=== PATIENT | female | born 1955 | race Caucasian/White ===

== ENCOUNTER 2021-10-03 16:28 | Outpatient (CLI) | payer MEDICARE, SELFPAY ==
--- NOTE | ~2021-10-03 | MM_ITS ---
EXAMINATION: MM screening [facility] BI w ho HISTORY: Screening mammogram TECHNIQUE: Craniocaudal and mediolateral oblique 3-D tomosynthesis images were obtained and synthetic 2-D images were generated. CAD analysis was submitted and interpreted. COMPARISON: 02/21/2019, 03/06/2016 BREAST PARENCHYMAL COMPOSITION: There are scattered areas of fibroglandular density. FINDINGS: There is no suspicious mass, calcification, or architectural distortion to suggest malignan cy in either breast. There has been no suspicious interval change. IMPRESSION: 1. No mammographic evidence of malignancy. 2. Recommend routine screening mammography in one year. BI-RADS Category 1: Negative Reviewed, dictated and finalized at location A.
--- NOTE | ~2021-10-03 | DEXA_ITS ---
Bone Density Report Name: CHAU TELLO Age: 66 Sex: Female Ethnicity: White Date of : 1955 Indication: postmenopausal; screening for osteoporosis; height loss; Referring Provider: MICHELLE, ABRAHAM Vergara Study: Bone densitometry was performed. Exam Date: October 03, 2021 Accession number: [id number] Bone Density: Region BMD T-score Z-score Classification AP Spine(L1-L4) 1.181 1.2 3.0 Normal Femoral Neck (Left) 0.655 -1.7 -0.2 Osteopenia Total Hip (Left) 0.806 -1.1 0.2 Osteopenia Femoral Neck (Right) 0.705 -1.3 0.3 Osteopenia Total Hip (Right) 0.821 -1.0 0.3 Normal Total Hip Mean 0.814 -1.1 0.3 Osteopenia World Health Organization criteria for BMD impression classify patients as: Normal (T-score at or above -1.0), Osteopenia (T-score between -1.0 and -2.5), or Osteoporosis (T-score at or below -2.5). 10-year Fracture Risk(1): Major Osteoporotic Fracture 9.3% Hip Fracture 1.2% Reported Risk Factors: [place] (), Neck BMD=0.655, BMI=32.7 (1) FRAX(R) Version 3.08. Fracture probability calculated for an untreated patient. Fracture probability may be lower if the patient has received treatment. Clinical Information Provided by Patient: Has used the following medications: Vitamin D Patient maximum height was 65 Menopause Age: 38 Drinks caffeinated beverages Onset of menses at age 13 Number of children 2 Impression: The patient has low bone mass, based on the Left Femoral Neck T-score. The patient has an estimated ten-year risk of hip fracture of 1.2% and an estimated ten-year risk of major fracture of 9.3%, based on the WHO FRAX algorithm. Discussion: BONE DENSITY IS LOW AT ONE OR MORE SKELETAL SITES. This patient's lowest T-score is low at one or more skeletal sites. It meets the World Health Organization's (WHO) criteria for ?low bone mass? (T-score between -1.0 and -2.5). The patient's 10-year risk of fracture as calculated by FRAX is less than the threshold where pharmacological therapy is recommended by the National Osteoporosis Foundation (NOF). However, all treatment decisions require clinical judgment and consideration of individual patient factors, including patient preferences, comorbidities, previous drug use, risk factors not captured in the FRAX model (e.g., frailty, falls, vitamin D deficiency, increased bone turnover, interval significant decline in bone density) and possible under or overestimation of fracture risk by FRAX. The patient should follow a healthful lifestyle (good nutrition with adequate calcium and vitamin D, and appropriate weight-bearing exercise). Follow-Up: Consider repeating this study in 2 to 3 years to reassess this patient's status, or sooner if there is some new clinical indication. Reported by: [facility] on 10/03/2021 5:03:00 PM.
== END 2021-10-03 16:29 | disposition home or self-care (01) ==
PROVIDERS: PCP Internal Medicine; Visit Provider Internal Medicine
DX: Z12.31 Encounter for screening mammogram for malignant neoplasm of breast (principal); Z78.0 Asymptomatic menopausal state; M85.851 Other specified disorders of bone density and structure, right thigh; M85.852 Other specified disorders of bone density and structure, left thigh
CPT/HCPCS: 77063; 77067; 77080

== ENCOUNTER → 2023-05-18 07:02 | Outpatient (CLI) | payer MEDICARE, SELFPAY ==
--- NOTE | ~2023-05-18 | MM_ITS ---
EXAMINATION: MM screening [facility] BI w ho HISTORY: Screening TECHNIQUE: Craniocaudal and mediolateral oblique 3-D tomosynthesis images were obtained and synthetic 2-D images were generated. CAD analysis was submitted and interpreted. COMPARISON: Comparison to multiple prior studies sequentially, with oldest reviewed study dated 02/20. BREAST PARENCHYMAL COMPOSITION: There are scattered areas of fibroglandular density. FINDINGS: There is no evidence of suspicious mass, calcification, or architectural distortion to sugg est malignancy in either breast. There has been no suspicious interval change. IMPRESSION: 1. No mammographic evidence of malignancy. 2. Recommend routine screening mammography in one year. BI-RADS Category 1: Negative Reviewed, dictated and finalized at location A. EAR PHARMACIST
== END ==
PROVIDERS: Visit Provider Internal Medicine
DX: Z12.31 Encounter for screening mammogram for malignant neoplasm of breast (principal)
CPT/HCPCS: 77063; 77067

== ENCOUNTER 2024-02-04 13:39 | Outpatient (CLI) | payer MEDICARE, SELFPAY ==
--- NOTE | ~2024-02-04 | XR_ITS ---
EXAMINATION: XR lg joint inject/asp w image DATE: 02/04/2024 14:52 INDICATION: Right knee pain. TECHNIQUE: A time-out was performed to verify the patient's name, date of , and procedure to b e performed. The procedure including the risks, benefits, and alternatives was discussed with the pat ient. Risks discussed included bleeding and infection. The patient understood the risks and agreed to proceed. The skin overlying the right knee joint was prepped and draped in usual sterile fashion. Anesthetic was administered with 1% lidocaine subcutaneously. An 18 G needle was advanced under fluo roscopic guidance into the joint. Fluid was aspirated. The needle was removed and the entry site was cleaned and dressed. There were no immediate complications. Fluoroscopy exposure time was 0.0 minute s. The total number of images was 1. FINDINGS: Real-time fluoroscopy demonstrates a total right knee arthroplasty with pointer overlying t he knee joint. IMPRESSION: 1. Fluoroscopy guided right knee joint aspiration yielding 9 mL yellow fluid. Reviewed, dictated and finalized at location A. GE MANAGER
== END 2024-02-04 13:40 | disposition home or self-care (01) ==
PROVIDERS: PCP Internal Medicine; Visit Provider Orthopaedic Surgery
DX: M25.561 Pain in right knee (principal); Z96.651 Presence of right artificial knee joint
CPT/HCPCS: 20610; 77002; 87070; 87075; 87205

== ENCOUNTER 2024-05-30 08:19 | Outpatient (CLI) | payer MEDICARE, SELFPAY ==
--- NOTE | ~2024-05-30 | MM_ITS ---
EXAMINATION: MM screening [facility] BI w ho HISTORY: Screening mammogram TECHNIQUE: Craniocaudal and mediolateral oblique 3-D tomosynthesis images were obtained and synthetic 2-D images were generated. CAD analysis was submitted and interpreted. COMPARISON: 05/18/2023, 10/03/2021, 02/21/2019 BREAST PARENCHYMAL COMPOSITION:Not Dense. The breasts are almost entirely fatty FINDINGS: Stable small circumscribed bilateral low-density masses. No suspicious mass, calcification, or architectural distortion are identified in either breast to suggest malignancy. There has been no suspicious interval change. IMPRESSION: No mammographic evidence of malignancy. Recommend routine screening mammography in one year. BI-RADS Category 2: Benign finding(s). Reviewed, dictated and finalized at location .
--- NOTE | ~2024-05-30 | DEXA_ITS ---
Bone Density Report Name: CHAU TELLO Age: 68 Sex: Female Ethnicity: White Date of : 1955 Indication: osteopenia; hyperparathyroidism; parental hip fracture; height loss; Referring Provider: MICHELLE, ABRAHAM Vergara Study: Bone densitometry was performed. Exam Date: May 30, 2024 Accession number: [id number] Bone Density: Region BMD T-score Z-score Classification AP Spine(L1-L4) 1.159 1.0 3.0 Normal Femoral Neck (Left) 0.643 -1.9 -0.1 Osteopenia Total Hip (Left) 0.800 -1.2 0.3 Osteopenia Femoral Neck (Right) 0.647 -1.8 -0.1 Osteopenia Total Hip (Right) 0.774 -1.4 0.1 Osteopenia Total Hip Mean 0.787 -1.3 0.2 Osteopenia World Health Organization criteria for BMD impression classify patients as: Normal (T-score at or above -1.0), Osteopenia (T-score between -1.0 and -2.5), or Osteoporosis (T-score at or below -2.5). 10-year Fracture Risk(1): Major Osteoporotic Fracture 17% Hip Fracture 2.8% Reported Risk Factors: [place] (), Neck BMD=0.643, BMI=33.3, parental fracture (1) FRAX(R) Version 3.08. Fracture probability calculated for an untreated patient. Fracture probability may be lower if the patient has received treatment. Previous Exams: Region Exam Age BMD T-score BMD Change BMD Change Date g/cm2 vs Baseline vs Previous AP Spine (L1-L4) 05/30/2024 68 1.159 1.0 -0.022 (-1.9%) -0.022 (-1.9%) 10/03/2021 66 1.181 1.2 Total Hip(Left) 05/30/2024 68 0.800 -1.2 -0.005 (-0.7%) -0.005 (-0.7%) 10/03/2021 66 0.806 -1.1 Total Hip(Right) 05/30/2024 68 0.774 -1.4 -0.047 (-5.7%) -0.047 (-5.7%) 10/03/2021 66 0.821 -1.0 *Denotes significance at 95% confidence level, LSC for AP Spine = 0.022 g/cm2, LSC for Total Hip = 0.027 g/cm2 Clinical Information Provided by Patient: Parent has had a hip fracture Has used the following medications: Vitamin D Has the following medical conditions: Hyperparathyroidism Patient maximum height was 63.0 Menopause Age: 38 No regular weight bearing exercise Drinks caffeinated beverages Onset of menses at age 13 Number of children 2 Impression: The patient has low bone mass, based on the Left Femoral Neck T-score. The patient has an estimated ten-year risk of hip fracture of 2.8% and an estimated ten-year risk of major fracture of 17%, based on the WHO FRAX algorithm. The patient has risk factors, including: parental hip fracture. The BMD for the Total Hip(Right) decreased, changing by -5.7% since the last DXA exam. Discussion: BONE DENSITY IS LOW AT ONE OR MORE SKELETAL SITES. This patient's lowest T-score is low at one or more skeletal sites. It meets the World Health Organization's (WHO) criteria for ?low bone mass? (T-score between -1.0 and -2.5). The patient's 10-year risk of fracture as calculated by FRAX is less than the threshold where pharmacological therapy is recommended by the National Osteoporosis Foundation (NOF). However, all treatment decisions require clinical judgment and consideration of individual patient factors, including patient preferences, comorbidities, previous drug use, risk factors not captured in the FRAX model (e.g., frailty, falls, vitamin D deficiency, increased bone turnover, interval significant decline in bone density) and possible under or overestimation of fracture risk by FRAX. The patient should follow a healthful lifestyle (good nutrition with adequate calcium and vitamin D, and appropriate weight-bearing exercise). Follow-Up: Consider repeating this study in 2 years to reassess this patient's status, or sooner if there is some new clinical indication. Reported by: EMILY on 05/30/2024 9:08:00 AM. Reviewed, dictated and finalized at location A. GINO
--- OUTSIDE RECORDS SUMMARY | 2024-05-30 08:47 | XMS_ITS | Clinical Summary ---
Author Organization [facility] Address [address] [place] [address] Care Team Providers Care Regulatory Affairs Internship Name Role Phone Christal Zimmerman MD, Isaac Frazier Primary Care [facility] ider Allergies No known active allergies Medications ALPRAZolam (XANAX) 0.25 mg tablet alprazolam 0.25 mg tablet 0 Active enalapril (VASOTEC) 10 mg tablet enalapril maleate 10 mg tablet 0 Active levothyroxine (SYNTHROID) 75 mcg tablet levothyroxine 75 mcg tablet 0 Active omeprazole (PriLOSEC) 20 mg capsule omeprazole 20 mg capsule,delayed release 0 Active simvastatin (ZOCOR) 20 mg tablet simvastatin 20 mg tablet 0 Active triamterene-hy droCHLOROthiaz clarence (MAXZIDE,DYAZI DE) 75-50 mg per tablet triamterene 75 mg-hydrochlorothi azide 50 mg tablet 0 Active Active Problems No known active problems Encounters Date Type Department Care Team Description 03/20/2024 1:10 PM RANGE MECHANIC - 03/20/2024 11:59 PM RANGE MECHANIC Hospital Encounter [facility] [id number] [address] Discharge Disposition: Discharge to home or self care 03/20/2024 1:09 PM RANGE MECHANIC - 03/20/2024 11:59 PM RANGE MECHANIC Hospital Encounter [facility] [address] [address] Discharge Disposition: Discharge to home or self care from Last 3 Months Surgical History Surgery Date Site/Laterality Comments KNEE SURGERY JOINT REPLACEMENT Bilateral rt and lt tkr SHOULDER SURGERY Left SECTION Medical History Medical History Date Comments GERD (gastroesophageal reflux disease) Hiatal hernia Hypercholesteremia Hypertension Osteoarthritis Thyroid disease Family History Medical History Relation Name Comments Cancer Father Relation Name Status Comments Father Social History Tobacco Use Types Packs/Day Years Used Date Smoking Tobacco: Never Comments Unknown Sex and Gender Information Value Date Recorded Sex Assigned at Not on file Legal Sex Female 9:29 PM CDT Gender Identity Female 07/25/2020 12:59 PM CDT Sexual Orientation Not on file Occupation Industry Job Start Date Job End Date clerical Not on file Not on file Not on file Obstetrics History Last Filed Vital Signs Vital Sign Reading Time Taken Comments Blood Pressure - - Pulse - - Temperature - - Respiratory Rate - - Oxygen Saturation - - Inhaled Oxygen Concentration - - Weight 81.6 kg (180 lb) 07/27/2020 10:05 AM CDT Height 167.6 cm (5' 6 ) 07/27/2020 10:05 AM CDT Body Mass Index 29.05 07/27/2020 10:05 AM CDT Plan of Treatment Health Maintenance Due Date Last Done Comments Breast Cancer Screening-Mammogram 1955 Colon Cancer Screening-Colonoscopy 1955 Depression Screening 1955 Fall Risk Assessment 1955 Hepatitis C Screening 1955 Osteoporosis Screening-Bone Density Scan 1955 Hepatitis B Screening 09/03/1973 Zoster Vaccine (2 of 2) 05/04/2019 03/09/2019, 01/04 Well Visit 65+ 09/03/2020 Covid-19 Vaccine (2023-2 5 season) 2024 12/04/2023, 12/24/2022, 01/21/2022, Additional history exists DTaP/Tdap/Td Vaccine (3 - Td or Tdap) 08/20/2026 08/20/2016, 08/20/2016 Pneumococcal vaccine 65+ Completed 06/02/2022, 09/20 Influenza Vaccine Completed 12/04/2023, , 12/06/2021, Additional history exists Procedures Procedure Name Priority Date/Time Associated Diagnosis Comments NM OUTSIDE REFERENCE Routine 03/20/2024 1:10 PM RANGE MECHANIC MSK CT OUTSIDE REFERENCE Routine 03/20/2024 1:09 PM RANGE MECHANIC from Last 3 Months Results * NM Outside Reference (03/20/2024 1:10 PM RANGE MECHANIC) Impressions RAD_PACS[facility] - 03/20/2024 1:10 PM RANGE MECHANIC These images are for Reference purposes only and have not been reviewed by [facility]. There will be no report generated by a [facility] Radiologist. Narrative RAD_PACS[facility] - 03/20/2024 1:10 PM RANGE MECHANIC EXAMINATION: Images For Reference Purposes Only Lucas Gupta MD IMG NM PROCEDURES Fi nal Result Performing Organization Address [facility] de Phone Number RAD_PACS[facility] * MSK CT Outside Reference (03/20/2024 1:09 PM RANGE MECHANIC) Impressions [facility]ACS[facility] - 03/20/2024 1:09 PM RANGE MECHANIC These images are for Reference purposes only and have not been reviewed by [facility]. There will be no report generated by a [facility] Radiologist. Narrative RAD_PACS[facility] - 03/20/2024 1:09 PM RANGE MECHANIC EXAMINATION: Images For Reference Purposes Only Lucas Gupta MD IMG CT PROCEDURES Fi nal Result Performing Organization Address [facility] Co de Phone Number RAD_PACS[facility] from Last 3 Months Insurance [facility], [facility] ACCESS CHOICE MEDICARE SOLUTIONS Care Teams Regulatory Affairs Internship Relationship Specialty Start Date End Date Isaac Siegel Jr., MD [address] [place] [address] PCP - General Internal Medicine 07/05/20
--- OUTSIDE RECORDS SUMMARY | 2024-05-30 08:47 | XMS_ITS | CONTINUITY OF CARE DOCUMENT ---
Author Name julius madrid Address Unknown Organization [facility] Address [address] [place] [address] Phone [phone] Care Team Providers Care Process Technician Name Role Phone Checo Avila MD Unavailable BRETT FITZGERALD MD Unavailable [phone] INSURANCE PROVIDERS Payer name Policy type / Coverage type Noe red alliance party ID [employer] insurance com marguerite [id number]
--- OUTSIDE RECORDS SUMMARY | 2024-05-30 08:47 | XMS_ITS | Clinical Summary ---
Author Organization [facility] Address [address] [place] [address] Care Team Providers Care Fisher Spear Name Role Phone Isaac Siegel MD Primary Care Provider [phone] Allergies No known active allergies Medications enalapril 10 MG tablet Take 10 mg by mouth daily. 2 Active triamterene-hyd roCHLOROthiazid e 75-50 MG tablet Take 0.5 tablets by mouth daily. 2 Active levothyroxine 75 MCG tablet Take 75 mcg by mouth before breakfast. 2 Active simvastatin 20 MG tablet Take 20 mg by mouth nightly at bedtime. 2 Active omeprazole 20 MG capsule omeprazole 20 mg capsule,delayed release Active ALPRAZolam 0.25 MG tablet Take 0.25 mg by mouth 3 (three) times daily as needed. FOR ANXIETY 2 Active Cholecalciferol (VITAMIN D) 50 MCG (1999) Tab Active Active Problems No known active problems Family History Relation Status Comments Father Mother Social History Tobacco Use Types Packs/Day Years Used Date Smoking Tobacco: Never Smokeless Tobacco: Never Alcohol Use Standard Drinks/Week Comments Not Currently 0 (1 standard drink = 0.6 oz pur e alcohol) Comments No Sex and Gender Information Value Date Recorded Sex Assigned at Not on file Legal Sex Female 5:07 PM CDT Gender Identity Not on file Sexual Orientation Not on file Last Filed Vital Signs Vital Sign Reading Time Taken Comments Blood Pressure 126/84 09/20/2021 8:22 AM CDT Pulse 65 09/20/2021 8:22 AM CDT Temperature 36.3 C (97.4 F) 09/20/2021 8:22 AM CDT Respiratory Rate 18 09/20/2021 8:22 AM CDT Oxygen Saturation 100% 09/20/2021 8:22 AM CDT Inhaled Oxygen Concentration - - Weight 77.1 kg (170 lb) 09/20/2021 8:22 AM CDT Height 160 cm (5' 3 ) 09/20/2021 8:22 AM CDT Body Mass Index 30.11 09/20/2021 8:22 AM CDT Plan of Treatment Health Maintenance Due Date Last Done Comments Colorectal Cancer Screening Colonoscopy (10 Years) 1955 Hepatitis C 09/03/1973 DTaP, Tdap and Td Vaccines ( 1 - Tdap) 09/03/1974 Mammogram Screening 1995 Zoster Vaccines (1 of 2) 09/03/2005 Annual Medicare Wellness Visit 09/03/2020 Dexa Scan (General) 09/03/2020 Pneumococcal Vaccine: 65+ Ye ars (1 of 1 - PCV) 09/03/2020 COVID-19 Vaccine (2 - 2023-2 5 season) 2023 12/25/2020 Influenza Adult (#1) 2023 RSV Immunization or 60+ Years (1 - 1-dose 75+ series) 09/03/2030 Meningococcal B Vaccine Aged Out No l onger eligible based on patient's age to complete this topic Meningococcal Vaccine Aged Out No belinda farrukh eligible based on patient's age to complete this topic RSV Immunizations Under 20 Months Aged Out No longer eligible based on patient's age to complete this topic Insurance MED REPLACE [facility] MEDICARE Care Teams Fisher Spear Relationship Specialty Start Date End Date Isaac Siegel MD [address] [facility] [address] [place] [phone] PCP - General INTERNAL MEDICINE 09/20/21
--- OUTSIDE RECORDS SUMMARY | 2024-05-30 08:47 | XMS_ITS | Continuity of Care Document ---
Author Organization [facility] Address [address] [facility] [address] [place] [address] Phone Care Team Providers Care Inventory Control Supervisor Name Role Phone Ames OD, Juanpablo Unavailable Unavailable Procedures Procedure Date Eye Exam & Treatment Refraction Advance Directives Directive Yes / No Effective Date File Name No Information Encounters Encounter Description Practice Location Reason(s) For Visit Diagnoses Date Provider Providers Copied on Encounter [facility], [address], [place], [place], [id number], [place] tel:[phone] [facility] No Information 9-200 9 Ames OD Juanpablo. [address] , [address], [place], [address], [place]. tel:[phone] Family History Family Member Type Diagnosis Age At Onset No Information Payers Payer name Insurance type Covered alliance party ID Authoriza tion(s) No Information Social History Type Description Quantity Date Captured Comments Sex Female Smoking Status No Information Chief Complaint And Reason For Visit No Information Reason For Referral Reason For Referral No Information History Of Present Illness Encounter Date Complaint History Of Prese nt Illness No Information Functional Status Date Functional Assessmen t No Information Instructions Date Instruction Additional Infor mation No Information Assessments Type Assessment Date No Information Patient Care Teams Name Effective Dates (start - stop) Status Members No Information
--- OUTSIDE RECORDS SUMMARY | 2024-05-30 08:47 | XMS_ITS | Referral Summary ---
Author Organization [facility] Address [address] [place] [address] Care Team Providers Care Family Services Coordinator Name Role Phone Christal Zimmerman MD, Isaac Frazier Primary Care Prov ider Encounters Date Type Department Care Team Description 03/20/2024 1:10 PM PRE PRESS OPERATOR - 03/20/2024 11:59 PM PRE PRESS OPERATOR Hospital Encounter [facility] [place] Imaging [address] [address] Discharge Disposition: Discharge to home or self care 03/20/2024 1:09 PM PRE PRESS OPERATOR - 03/20/2024 11:59 PM PRE PRESS OPERATOR Hospital Encounter [facility] [place] [facility] [address] [address] Discharge Disposition: Discharge to home or self care from Last 3 Months Allergies No known active allergies Medications ALPRAZolam [...] Active Active Problems No known active problems Social History Tobacco Use Types Packs/Day Years Used Date Smoking Tobacco: Never Comments Unknown Sex and Gender Information Value Date Recorded Sex Assigned at Not on file Legal Sex Female 9:29 PM CDT Gender Identity Female 07/25/2020 12:59 PM CDT Sexual Orientation Not on file Occupation Industry Job Start Date Job End Date clerical Not on file Not on file Not on file Last Filed Vital Signs [...] 07/27/2020 10:05 AM CDT Plan of Treatment Not on file Procedures Procedure Name Priority Date/Time Associated Diagnosis Comments NM OUTSIDE REFERENCE Routine 03/20/2024 1:10 PM PRE PRESS OPERATOR MSK CT OUTSIDE REFERENCE Routine 03/20/2024 1:09 PM PRE PRESS OPERATOR from Last 3 Months Results * NM Outside Reference (03/20/2024 1:10 PM PRE PRESS OPERATOR) Impressions RAD_PACS[facility] - 03/20/2024 1:10 PM PRE PRESS OPERATOR These images are for Reference purposes only and have not been reviewed by [facility]. There will be no report generated by a [facility] Radiologist. Narrative RAD_PACS_[facility] - 03/20/2024 1:10 PM PRE PRESS OPERATOR EXAMINATION: Images For Reference Purposes Only us Lucas Gupta MD IMG NM PROCEDURES Fi nal Result RAD_PACS[facility] * MSK CT Outside Reference (03/20/2024 1:09 PM PRE PRESS OPERATOR) Impressions RAD_[facility]ACS[facility] - 03/20/2024 1:09 PM PRE PRESS OPERATOR These images are for Reference purposes only and have not been reviewed by [facility]. There will be no report generated by a [facility] Radiologist. Narrative RAD_PACS[facility] - 03/20/2024 1:09 PM PRE PRESS OPERATOR EXAMINATION: Images For Reference Purposes Only us Lucas Gupta MD IMG CT PROCEDURES Fi nal Result RAD_PACS_[facility] from Last 3 Months Insurance [employer] [facility] Address: [address] [place] [address] MEDICARE SOLUTIONS Care Teams Family Services Coordinator Relationship Specialty Start Date End Date Isaac Siegel Jr., MD [address] [facility] [address] [place] [address] PCP - General Internal Medicine 07/05/20
== END 2024-05-30 08:20 | disposition home or self-care (01) ==
LOC: ANHIMG 08:25
PROVIDERS: PCP Internal Medicine; Visit Provider Internal Medicine
DX: Z12.31 Encounter for screening mammogram for malignant neoplasm of breast (principal); M85.89 Other specified disorders of bone density and structure, multiple sites; Z78.0 Asymptomatic menopausal state
CPT/HCPCS: 77063; 77067; 77080